=== PATIENT | male | born 1965 | race American Indian/Alaskan Native ===

== ENCOUNTER → 2016-09-23 | Outpatient (CLI) | payer OTHER ==
[~2016-09-23] MED LIST: CYCL-259 PO; DICL50TA2 PO; HYDR-3240 PO; MAGN400T7 PO; MULT-26 PO; NADO20TA PO; NAPR500T3 PO; OMEP-110 PO; OMEP20TA2 PO; ONDA4TAB10 PO; RIFA550T PO; TAMS0.4C2 PO; [UNRECOGNIZED DRUG - CODE] OP
[2016-09-23 09:59] LABS: BLOOD UREA NITROGEN 12 mg/dL (7-18)
[2016-09-23 10:17] LABS: HEMOGLOBIN 16.2 g/dL (13.7-18.0)
== END | disposition home or self-care (01) ==
LOC: STAR 08:26
PROVIDERS: ATTEND Orthopaedic Surgery Adult Reconstructive Orthopaedic Surgery
DX: Z01.818 Encounter for other preprocedural examination (principal); S32.038A Other fracture of third lumbar vertebra, initial encounter for closed fracture; M17.12 Unilateral primary osteoarthritis, left knee; X58.XXXA Exposure to other specified factors, initial encounter; Y93.89 Activity, other specified; Y92.89 Other specified places as the place of occurrence of the external cause; Y99.8 Other external cause status
CPT/HCPCS: 36415; 80048; 81003; 85025; 85610; 85730; 87081

== ENCOUNTER 2016-09-30 05:46 | Inpatient (IN) | payer OTHER ==
[~2016-09-30] VITALS: Ht 175.3 cm; Wt 115.0 kg
[2016-09-30] MEDS ORDERED: VANCOMYCIN PER PHARMACY MC STA (06:12)
[2016-09-30] MEDS ORDERED: LACTATED RINGERS 1,000 ML IV SCH (06:28)
[2016-09-30 06:29] VITALS: BP 119/77
[2016-09-30] MEDS ORDERED: VANCOMYCIN 2,000 MG in SODIUM CHLORIDE 0.9% 500 ML IV ONE (06:30)
[2016-09-30] MEDS ORDERED: TRANEXAMIC ACID 100 MG/ML, 10ML ONE ×2 (06:46→06:47)
[2016-09-30] MEDS ORDERED: KETOROLAC 60 MG/2 ML ONE (06:46)
[2016-09-30] MEDS ORDERED: ROPIvacaine/PF 0.2%, 20 ML ONE (06:46)
[2016-09-30] MEDS ORDERED: EPINEPHRINE 1 MG/ML, 1ML ONE (06:47)
[2016-09-30] MEDS ORDERED: BACITRACIN 50,000 UNIT ONE (06:47)
[2016-09-30] MEDS ORDERED: SODIUM CHLORIDE 0.9% 0 ML ONE (06:47)
[2016-09-30] MEDS ORDERED: FENTANYL PF 250 MCG/5ML ONE ×2 (06:52→09:13)
[2016-09-30] MEDS ORDERED: MIDAZOLAM 1 MG/ML, 2ML ONE (06:52)
[2016-09-30] MEDS ORDERED: BUPIVACAINE/PF-EPI 0.25% 1:200K ONE (06:59)
[2016-09-30] MEDS ORDERED: SUCCINYLCHOLINE 20 MG/ML, 10ML ONE (07:45)
[2016-09-30] MEDS ORDERED: PROPOFOL 10 MG/ML, 20ML ONE (07:45)
[2016-09-30] MEDS ORDERED: ROCURONIUM 10 MG/ML ONE (07:45)
[2016-09-30] MEDS ORDERED: CEFAZOLIN 1,000 MG ONE (07:45)
[2016-09-30] MEDS ORDERED: ACETAMINOPHEN 325 MG TABLET PO PRN (09:30)
[2016-09-30] MEDS ORDERED: OXYcodone 5 MG/5 ML ORAL.SOL UDC PO PRN (09:30)
[2016-09-30] MEDS ORDERED: ONDANSETRON 2MG/ML, 2ML IVPush PRN (09:30)
[2016-09-30] MEDS ORDERED: METOCLOPRAMIDE 5 MG/ML, 2ML IV PRN (09:30)
[2016-09-30] MEDS ORDERED: hydrALAzine 20 MG/ML, 1ML IV PRN (09:30)
[2016-09-30] MEDS ORDERED: LABETALOL 5MG/ML, 20ML IV PRN (09:30)
[2016-09-30] MEDS ORDERED: OXYcodone 5 MG/5 ML ORAL.SOL UDC ONE (09:52)
[2016-09-30] MEDS ORDERED: ACETAMINOPHEN 650 MG/20.3 ML UDC ONE (09:52)
[2016-09-30] MEDS ORDERED: FENTANYL PF 100 MCG/2ML ONE ×2 (09:52→11:01)
[2016-09-30] MEDS: FENTANYL PF 100 MCG/2ML IV PRN ×3 (09:55→11:05)
[2016-09-30] MEDS ORDERED: MAGNESIUM HYDROXIDE 8%, 30ML UDC PO PRN (10:00)
[2016-09-30] MEDS ORDERED: BISACODYL 10 MG SUPP PR PRN (10:00)
[2016-09-30] MEDS ORDERED: ONDANSETRON 2MG/ML, 2ML IV PRN (10:00)
[2016-09-30] MEDS ORDERED: ZOLPIDEM 5MG TABLET PO PRN (10:00)
[2016-09-30] MEDS ORDERED: ALUMINUM/MAG/SIMETHICONE 30 ML UDC PO PRN (10:00)
[2016-09-30] MEDS ORDERED: PROMETHAZINE 12.5 MG SUPP PR PRN (10:00)
[2016-09-30] MEDS ORDERED: SENNA/DOCUSATE TABLET PO PRN (10:00)
[2016-09-30] MEDS ORDERED: ONDANSETRON 4 MG TABLET PO PRN (10:00)
[2016-09-30] MEDS ORDERED: DIPHENHYDRAMINE 25 MG CAPSULE PO PRN (10:00)
[2016-09-30] MEDS: SCOPOLAMINE PATCH, 1.5MG PATCH.TD72 TD SCH ×2 (10:00→23:37)
[2016-09-30] MEDS ORDERED: ACETAMINOPHEN 650 MG/20.3 ML UDC PO PRN (10:00)
[2016-09-30] MEDS ORDERED: TRANEXAMIC ACID 1,000 MG in SODIUM CHLORIDE 0.9% 100 ML IVPB ONE (10:10)
[2016-09-30] MEDS ORDERED: HYDROmorphone 2 MG/ML, 1ML ONE (10:18)
[2016-09-30] MEDS: HYDROmorphone 1 MG/ML, 1ML IV PRN ×4 (10:20→20:46)
[2016-09-30] MEDS ORDERED: CEFAZOLIN PMX 2GM/50ML 50 ML IVPB SCH (12:45)
[2016-09-30] MEDS: DIAZEPAM 5 MG TABLET PO PRN ×3 (13:06→23:36)
[2016-09-30] MEDS: TAMSULOSIN 0.4 MG CAP.ER.24H PO SCH (15:03)
[2016-09-30 15:05] VITALS: BP 150/93
[2016-09-30] MEDS: OXYcodone IR 5MG TABLET PO PRN ×3 (15:07→23:36)
[2016-09-30] MEDS: SODIUM CHLORIDE 0.9% 1,000 ML IV SCH ×2 (15:08→20:00)
[2016-09-30] MEDS: OMEPRAZOLE 20 MG CAPSULE.DR PO SCH (15:31)
[2016-09-30] MEDS: CEFAZOLIN PMX 2GM/50ML 50 ML IVPB SCH ×2 (16:19→23:36)
[2016-09-30] MEDS: ASPIRIN 325 MG TABLET EC PO SCH (17:55)
[2016-09-30 19:44] VITALS: BP 138/81
[2016-09-30] MEDS: DOCUSATE 100 MG CAPSULE PO SCH (20:47)
[2016-09-30] MEDS: RIFAXIMIN 550 MG TABLET PO SCH (23:33)
[2016-09-30 23:40] VITALS: BP 165/99
[2016-10-01] MEDS: HYDROmorphone 1 MG/ML, 1ML IV PRN (02:09)
[2016-10-01] MEDS: SODIUM CHLORIDE 0.9% 1,000 ML IV SCH ×3 (04:00→20:00)
[2016-10-01 04:06] VITALS: BP 162/94
[2016-10-01] MEDS: DIAZEPAM 5 MG TABLET PO PRN ×3 (04:12→20:01)
[2016-10-01] MEDS: OXYcodone IR 5MG TABLET PO PRN ×4 (04:12→20:01)
[2016-10-01] MEDS ORDERED: DEXAMETHASONE 4 MG/ML, 1ML IVPush SCH (06:00)
[2016-10-01] MEDS: ASPIRIN 325 MG TABLET EC PO SCH ×2 (06:23→17:26)
[2016-10-01 06:49] VITALS: BP 148/84
[2016-10-01] MEDS: OMEPRAZOLE 20 MG CAPSULE.DR PO SCH ×2 (08:45→17:26)
[2016-10-01] MEDS: TAMSULOSIN 0.4 MG CAP.ER.24H PO SCH (08:45)
[2016-10-01] MEDS: DOCUSATE 100 MG CAPSULE PO SCH ×2 (08:45→20:01)
[2016-10-01] MEDS: RIFAXIMIN 550 MG TABLET PO SCH ×2 (08:45→20:01)
[2016-10-01] MEDS: MULTIVITAMINS/MINERALS TABLET PO SCH (08:45)
[2016-10-01 13:07] VITALS: BP 134/81
[2016-10-01 20:00] VITALS: BP 141/84
[2016-10-02] MEDS: DIAZEPAM 5 MG TABLET PO PRN (00:23)
[2016-10-02] MEDS: OXYcodone IR 5MG TABLET PO PRN ×6 (00:23→20:04)
[2016-10-02 03:27] VITALS: BP 114/66
[2016-10-02] MEDS: SODIUM CHLORIDE 0.9% 1,000 ML IV SCH ×4 (04:00→21:40)
[2016-10-02] MEDS: ASPIRIN 325 MG TABLET EC PO SCH ×2 (05:08→18:21)
[2016-10-02 07:05] VITALS: BP 117/68
[2016-10-02] MEDS: MULTIVITAMINS/MINERALS TABLET PO SCH (08:04)
[2016-10-02] MEDS: RIFAXIMIN 550 MG TABLET PO SCH ×2 (08:04→21:42)
[2016-10-02] MEDS: OMEPRAZOLE 20 MG CAPSULE.DR PO SCH ×2 (08:04→16:55)
[2016-10-02] MEDS: TAMSULOSIN 0.4 MG CAP.ER.24H PO SCH (08:04)
[2016-10-02] MEDS: DOCUSATE 100 MG CAPSULE PO SCH ×2 (08:04→21:42)
[2016-10-02 14:56] VITALS: BP 134/83
[2016-10-02 18:26] VITALS: BP 152/94
[2016-10-03] MEDS ORDERED: ASPI-650 PO (01:23)
[2016-10-03] MEDS ORDERED: MULT-658 PO (01:24)
[2016-10-03] MEDS ORDERED: DOCU100T3 PO (01:24)
[2016-10-03 01:26] VITALS: BP 115/68
[2016-10-03] MEDS ORDERED: OXYC5TAB3 PO (01:26)
[2016-10-03] MEDS ORDERED: ONDA4TAB7 PO (01:27)
[2016-10-03] MEDS ORDERED: DIAZ5TAB PO (01:27)
[2016-10-03] MEDS: ASPIRIN 325 MG TABLET EC PO SCH (04:43)
[2016-10-03] MEDS: OXYcodone IR 5MG TABLET PO PRN ×2 (04:43→10:04)
[2016-10-03 06:47] VITALS: BP 130/82
[2016-10-03] MEDS: RIFAXIMIN 550 MG TABLET PO SCH (10:02)
[2016-10-03] MEDS: OMEPRAZOLE 20 MG CAPSULE.DR PO SCH (10:02)
[2016-10-03] MEDS: SCOPOLAMINE PATCH, 1.5MG PATCH.TD72 TD SCH (10:03)
[2016-10-03] MEDS: DOCUSATE 100 MG CAPSULE PO SCH (10:03)
[2016-10-03] MEDS: TAMSULOSIN 0.4 MG CAP.ER.24H PO SCH (10:03)
[2016-10-03] MEDS: MULTIVITAMINS/MINERALS TABLET PO SCH (10:03)
== END 2016-10-03 11:13 | disposition home or self-care (01) | DRG 470 ==
LOC: ORIP 05:46 → 4NOR 11:51 → DCLOUNGE 10-03 11:02
PROVIDERS: ADMIT Orthopaedic Surgery Adult Reconstructive Orthopaedic Surgery; ATTEND Orthopaedic Surgery Adult Reconstructive Orthopaedic Surgery
PROC: 0SRD0J9 Replacement of Left Knee Joint with Synthetic Substitute, Cemented, Open Approach (ICD-10-PCS; principal; 2016-09-30 07:30)
DX: M17.12 Unilateral primary osteoarthritis, left knee (principal); M21.852 Other specified acquired deformities of left thigh
CPT/HCPCS: 36415; 85014; 85018; C1713; J0171; J0690; J1100; J1170; J1885; J2250; J2405; J2704; J2795; J3010; J3370; C1776; J0330; J7030; J7040; J7120; Q0163

== ENCOUNTER 2016-10-27 15:44 | Emergency (ER) | payer MEDICAID, OTHER ==
[~2016-10-27] VITALS: Ht 175.3 cm; Wt 105.0 kg
[~2016-10-27 15:44] MED LIST changes: +ASPI-650 PO; +DIAZ5TAB PO; +DOCU100T3 PO; +MULT-658 PO; +ONDA4TAB7 PO; +OXYC5TAB3 PO
[2016-10-27 17:26] LABS: BLOOD UREA NITROGEN 13 mg/dL (7-18)
[2016-10-27] MEDS ORDERED: OXYcodone/APAP 5/325MG TABLET PO ONE (18:00)
[2016-10-27] MEDS ORDERED: OXYcodone/APAP 5/325MG TABLET ONE (18:02)
[2016-10-27 18:09] VITALS: BP 121/79
== END 2016-10-27 18:45 | disposition home or self-care (01) ==
LOC: ED 18:38
DX: I82.432 Acute embolism and thrombosis of left popliteal vein (principal); M71.22 Synovial cyst of popliteal space [Baker], left knee
CPT/HCPCS: 36415; 80048; 82040; 85025; 99284

== ENCOUNTER → 2016-11-28 | Outpatient (CLI) | payer MEDICAID ==
[~2016-11-28] MED LIST changes: +HYDR-882 PO; +HYDROCODONE; +RIVA20TA PO
== END | disposition home or self-care (01) ==
LOC: STAR 08:16
PROVIDERS: ATTEND Orthopaedic Surgery Adult Reconstructive Orthopaedic Surgery
DX: Z02.9 Encounter for administrative examinations, unspecified (principal)

== ENCOUNTER 2016-12-02 06:32 | Day surgery (SDC) | payer MEDICAID ==
[~2016-12-02] VITALS: Ht 175.3 cm; Wt 95.0 kg
[~2016-12-02 06:32] MED LIST changes: -HYDR-882 PO
[2016-12-02] MEDS ORDERED: LACTATED RINGERS 1,000 ML IV SCH (06:53)
[2016-12-02 06:54] VITALS: BP 128/90
[2016-12-02] MEDS ORDERED: HYDR-882 PO (06:59)
[2016-12-02] MEDS ORDERED: LIDOCAINE 1%, 2ML SQ PRN (07:00)
[2016-12-02] MEDS ORDERED: MIDAZOLAM 1 MG/ML, 2ML ONE (07:55)
[2016-12-02] MEDS ORDERED: ROPIvacaine/PF 0.5%, 30 ML ONE (08:08)
[2016-12-02] MEDS ORDERED: OXYcodone 5 MG/5 ML ORAL.SOL UDC ONE (08:56)
[2016-12-02] MEDS ORDERED: ACETAMINOPHEN 325 MG TABLET ONE (08:56)
[2016-12-02] MEDS ORDERED: ACETAMINOPHEN 650 MG/20.3 ML UDC ONE (08:57)
[2016-12-02] MEDS ORDERED: FENTANYL PF 100 MCG/2ML ONE (08:57)
[2016-12-02] MEDS ORDERED: OXYcodone 5 MG/5 ML ORAL.SOL UDC PO PRN (09:00)
[2016-12-02] MEDS ORDERED: LABETALOL 5MG/ML, 20ML IV PRN (09:00)
[2016-12-02] MEDS: FENTANYL PF 100 MCG/2ML IV PRN ×2 (09:00→09:15)
[2016-12-02] MEDS ORDERED: ACETAMINOPHEN 325 MG TABLET PO PRN (09:00)
[2016-12-02] MEDS ORDERED: ONDANSETRON 2MG/ML, 2ML IVPush PRN (09:00)
[2016-12-02] MEDS ORDERED: hydrALAzine 20 MG/ML, 1ML IV PRN (09:00)
[2016-12-02] MEDS ORDERED: HYDROmorphone 1 MG/ML, 1ML ONE (09:28)
[2016-12-02] MEDS: HYDROmorphone 1 MG/ML, 1ML IV PRN ×2 (09:30→09:40)
[2016-12-02] MEDS ORDERED: PROPOFOL 10 MG/ML, 20ML ONE (11:15)
== END 2016-12-02 11:50 | disposition home or self-care (01) ==
LOC: OUT 06:32
PROVIDERS: ATTEND Orthopaedic Surgery Adult Reconstructive Orthopaedic Surgery
DX: M24.662 Ankylosis, left knee (principal); Z96.652 Presence of left artificial knee joint; Z86.718 Personal history of other venous thrombosis and embolism; I10 Essential (primary) hypertension; Z88.0 Allergy status to penicillin; H40.9 Unspecified glaucoma
CPT/HCPCS: 27570; J1170; J2250; J2704; J2795; J3010; J7120

== ENCOUNTER → 2017-03-13 | Outpatient (CLI) | payer MEDICAID ==
[~2017-03-13] MED LIST changes: +HYDR-882 PO; -OMEP20TA2 PO; +OMEP20TA9 PO; -RIFA550T PO; +RIFA550T4 PO
== END | disposition home or self-care (01) ==
LOC: CFH 07:19
PROVIDERS: ATTEND Internal Medicine
DX: K74.60 Unspecified cirrhosis of liver (principal); R16.1 Splenomegaly, not elsewhere classified
CPT/HCPCS: 76700

== ENCOUNTER → 2017-11-02 | Outpatient (CLI) | payer OTHER ==
[~2017-11-02] MED LIST changes: +NAPR-685 PO; -NAPR500T3 PO
== END | disposition home or self-care (01) ==
LOC: CFH 09:26
PROVIDERS: ATTEND Physician Assistant
DX: B19.20 Unspecified viral hepatitis C without hepatic coma (principal); K74.60 Unspecified cirrhosis of liver; R16.1 Splenomegaly, not elsewhere classified
CPT/HCPCS: 72148; 76700

== ENCOUNTER → 2018-03-30 | Outpatient (CLI) | payer OTHER ==
[~2018-03-30] MED LIST changes: +HYDR-3653 PO; -HYDR-882 PO
== END | disposition home or self-care (01) ==
LOC: CFH 10:17
PROVIDERS: ATTEND Internal Medicine
DX: R16.1 Splenomegaly, not elsewhere classified (principal); K80.20 Calculus of gallbladder without cholecystitis without obstruction; K74.60 Unspecified cirrhosis of liver
CPT/HCPCS: 76700

== ENCOUNTER → 2020-02-06 | Outpatient (CLI) | payer MEDICARE, OTHER ==
[~2020-02-06] MED LIST changes: -MAGN400T7 PO; +MAGN400T9 PO
[2020-02-06 12:52] LABS: INTERNATIONAL NORMALIZED RATIO 1.05 (0.93-1.1); PROTHROMBIN TIME 10.8 Seconds (9.6-11.5)
[2020-02-06 13:08] LABS: CHLORIDE 111 mmol/L (98-107)
[2020-02-06 13:25] LABS: ALANINE AMINOTRANSFERASE 27 U/L (12-78); ALBUMIN 4.1 g/dL (3.4-5.0); ALKALINE PHOSPHATASE 101 U/L (45-117); ANION GAP 8 mmol/L (5-15); BILIRUBIN,TOTAL 0.7 mg/dL (0.2-1.0); CALCIUM 8.8 mg/dL (8.5-10.1); CREATININE 0.59 mg/dL (0.7-1.3)
[2020-02-06 13:26] LABS: BASOPHILS # (AUTO) 0.01 x10^3/uL (0-0.1); BASOPHILS % (AUTO) 0 % (0-1); EOSINOPHILS # (AUTO) 0.07 x10^3/uL (0-0.4); EOSINOPHILS % (AUTO) 2 % (1-7); LYMPHOCYTES # (AUTO) 0.89 x10^3/uL (1-3.4); LYMPHOCYTES % (AUTO) 27 % (22-44); MD SCAN; MEAN CORPUSCULAR HEMOGLOBIN 32.1 pg (27.5-34.5); MEAN CORPUSCULAR HGB CONC 33.9 g/dL (33.2-36.2); MEAN CORPUSCULAR VOLUME 94.8 fL (81-97); MEAN PLATELET VOLUME 9.1 fL (7.4-10.4); MONOCYTES # (AUTO) 0.14 x10^3/uL (0.2-0.8); MONOCYTES % (AUTO) 4 % (2-9); NEUTROPHILS # (AUTO) 2.19 x10^3/uL (1.8-6.8); NEUTROPHILS % (AUTO) 66 % (42-75); PLATELET COUNT 73 x10^3/uL (130-400); RED BLOOD COUNT 4.72 x10^6/uL (4.38-5.82); RED CELL DISTRIBUTION WIDTH 13.8 % (9.4-14.8)
== END | disposition home or self-care (01) ==
LOC: CFH 06:39
PROVIDERS: ATTEND Internal Medicine
DX: K72.90 Hepatic failure, unspecified without coma (principal); B19.20 Unspecified viral hepatitis C without hepatic coma; K74.69 Other cirrhosis of liver; R16.1 Splenomegaly, not elsewhere classified; K80.20 Calculus of gallbladder without cholecystitis without obstruction
CPT/HCPCS: 36415; 76700; 80053; 82105; 85025; 85610

== ENCOUNTER → 2020-07-20 | Outpatient (CLI) | payer MEDICARE, OTHER ==
[~2020-07-20] MED LIST changes: -ASPI-650 PO; +ASPI325T20 PO; -CYCL-259 PO; +CYCL10TA2 PO; +HYDR-1067 PO; -HYDR-3240 PO; -NADO20TA PO; +NADO20TA2 PO; -OXYC5TAB3 PO; +OXYC5TAB98 PO
== END | disposition home or self-care (01) ==
LOC: RAD 08:33
PROVIDERS: ATTEND Internal Medicine
DX: K74.60 Unspecified cirrhosis of liver (principal); B19.20 Unspecified viral hepatitis C without hepatic coma; R16.1 Splenomegaly, not elsewhere classified
CPT/HCPCS: 76700